=== PATIENT | female | born 1980 | race Caucasian/White ===

== ENCOUNTER 2017-07-25 18:03 | Emergency (ER) | payer OTHER ==
[~2017-07-25] VITALS: Ht 152.4 cm; Wt 97.5 kg
[~2017-07-25 18:03] MED LIST: ACETAMINOPHEN-1 EAC1 PO; ALBUTEROL INH; ALEVE220 MG PO; AMOXICILLIN 50500 MG PO; AUGMENTIN 875875 MG PO; CIPRO250 MG PO; FLEXERIL PO; FLONASE 0.05%50 MCG NS; HYDROCODONE-AP1 EAC6 PO; IBUPROFEN 400400 M1 PO; KEFLEX500 MG PO; LIDOCAINE VISC100 ML SWISH&SPIT; MIRENA; MUCINEX D TABL1 EACH PO; MULTIVITAMINS; NAPROSYN500 MG PO; NORCO 5-325 TA1 EACH PO; PRENATAL; TYLENOL325 MG PO; ULTRAM 50MG TAB50 MG PO; ZANTAC; ZOFRAN ODT4 MG PO
[2017-07-25] MEDS ORDERED: AMOXICILLIN 50500 MG PO (18:18)
[2017-07-25] MEDS ORDERED: IBUPROFEN 800800 M1 PO (18:18)
[2017-07-25 18:22] VITALS: BP 128/66
== END 2017-07-25 18:23 | disposition home or self-care (01) ==
LOC: M.ERS 18:03
DX: K04.7 Periapical abscess without sinus (principal); Z90.49 Acquired absence of other specified parts of digestive tract; Z98.890 Other specified postprocedural states

== ENCOUNTER 2017-09-14 16:53 | Emergency (ER) | payer OTHER ==
[~2017-09-14] VITALS: Ht 152.4 cm; Wt 96.6 kg
[~2017-09-14 16:53] MED LIST changes: +IBUPROFEN 800800 M1 PO
[2017-09-14] MEDS ORDERED: ACCUNEB SO1.25 MG/1 INH (16:58)
[2017-09-14] MEDS ORDERED: PREDNISONE 20 M20 MG PO (17:43)
[2017-09-14] MEDS ORDERED: PROAIR HFA8.5 GM INH (17:43)
[2017-09-14 18:16] VITALS: BP 122/61
== END 2017-09-14 18:19 | disposition home or self-care (01) ==
LOC: M.ERS 16:53
DX: J45.901 Unspecified asthma with (acute) exacerbation (principal); F17.200 Nicotine dependence, unspecified, uncomplicated; Z90.49 Acquired absence of other specified parts of digestive tract; Z98.890 Other specified postprocedural states

== ENCOUNTER 2018-06-14 11:10 | Emergency (ER) | payer OTHER ==
[~2018-06-14] VITALS: Ht 154.9 cm; Wt 93.4 kg
[~2018-06-14 11:10] MED LIST changes: +ACCUNEB SO1.25 MG/1 INH; +PREDNISONE 20 M20 MG PO; +PROAIR HFA8.5 GM INH
[2018-06-14 11:14] VITALS: BP 152/80
[2018-06-14] MEDS ORDERED: ACETAMINOPHEN-1 EAC1 PO (11:36)
[2018-06-14] MEDS ORDERED: LIDOCAINE VISC100 ML PO (11:36)
[2018-06-14] MEDS ORDERED: AMOXICILLIN 50500 MG PO (11:36)
== END 2018-06-14 11:50 | disposition home or self-care (01) ==
LOC: M.ERS 11:10
DX: K08.89 Other specified disorders of teeth and supporting structures (principal); J45.909 Unspecified asthma, uncomplicated; Z98.890 Other specified postprocedural states; Z90.49 Acquired absence of other specified parts of digestive tract

== ENCOUNTER 2019-05-14 19:36 | Emergency (ER) | payer OTHER ==
[~2019-05-14] VITALS: Ht 152.4 cm; Wt 101.2 kg
[~2019-05-14 19:36] MED LIST changes: +LIDOCAINE VISC100 ML PO
[2019-05-14 19:46] VITALS: BP 149/98
[2019-05-14] MEDS ORDERED: TYLENOL WITH CO1 TA1 PO (20:11)
[2019-05-14] MEDS ORDERED: KEFLEX500 M1 PO (20:11)
== END 2019-05-14 20:15 | disposition home or self-care (01) ==
LOC: M.ERS 19:36
DX: K04.7 Periapical abscess without sinus (principal); J45.909 Unspecified asthma, uncomplicated; Z88.5 Allergy status to narcotic agent; Z90.49 Acquired absence of other specified parts of digestive tract; Z98.890 Other specified postprocedural states